=== PATIENT | female | born 1960 | race Caucasian/White ===

== ENCOUNTER → 2023-12-01 07:43 | Outpatient (REF) | payer OTHER, SELFPAY | LOC: MRI 3T 07:43 | PROVIDERS: ATTENDING PHYSICIAN Orthopaedic Surgery | DX: M84.374A Stress fracture, right foot, initial encounter for fracture (principal) | CPT/HCPCS: 73721 ==

== ENCOUNTER → 2024-01-25 07:47 | Outpatient (REF) | payer OTHER, SELFPAY | LOC: WDC 07:47 | PROVIDERS: ATTENDING PHYSICIAN Family Medicine | DX: Z12.31 Encounter for screening mammogram for malignant neoplasm of breast (principal) | CPT/HCPCS: 77063; 77067 ==

== ENCOUNTER 2024-02-22 10:19 | Emergency (ER) | payer OTHER, SELFPAY ==
[2024-02-22 10:28] VITALS: BP 149/93
[2024-02-22 11:52] LABS: % Basophils 0.8 % (0-2); % Eosinophils 2.3 % (0-6); % Immature Granulocytes 0.2 % (0-0.5); % Lymphocytes 19.8 % (20.5-51.1); % Monocytes 6.3 % (1.7-9.3); % Neutrophils 70.6 % (42.2-75.2); Absolute Basophils 0.1 10^3/uL (0-0.2); Absolute Eosinophils 0.2 10^3/uL (0-0.7); Absolute Lymphocytes 1.7 10^3/uL (1.2-3.4); Absolute Monocytes 0.5 10^3/uL (0.1-0.6); Absolute Neutrophils 5.9 10^3/uL (1.4-6.5); Hematocrit 38.7 % (37.0-47.0); Hemoglobin 13.1 g/dL (12.0-16.0); Mean Corp Hgb Conc. 33.9 g/dL (33.0-37.0); Mean Corpuscular Hgb 28.1 pg (27.0-31.0); Mean Platelet Volume 10.3 fL (7.4-10.4); Nucleated Red Blood Cells % 0 %; Platelet Count 255 10^3/uL (130-400); Red Blood Cell Count 4.66 10^6/uL (4.20-5.40); Red Cell Dist. Width 12.5 % (11.5-14.5); White Blood Cell Count 8.3 10^3/uL (4.8-10.8)
[2024-02-22 11:56] LABS: Urine Albumin Negative (Neg - Trace); Urine Bilirubin Negative (Negative); Urine Character Clear (Clear); Urine Color Yellow; Urine Glucose Negative (Negative); Urine Ketone Negative (Negative); Urine Leukocyte Negative (Negative); Urine Nitrite Negative (Negative); Urine Occult Blood Negative (Negative); Urine Specific Gravity 1.005 (<1.030); Urine Urobilinogen Negative (Neg - 1+)
--- NOTE | 2024-02-22 11:56 | ED.GENMED ---
History of Present Illness
General
Chief Complaint: Abdominal Pain
Source: patient
Exam Limitations: none
Time Seen by Provider: 02/22/24 11:21
Nursing documentation reviewed up to this point in time: agreed with
Travel History
Have you had any contact with someone who has COVID-19?: No
Do you have any symptoms of coronavirus? Fever > 100 degrees, chills, cough, shortness of breath, sore throat, loss of taste or smell, muscle aches, or headache?: No
History of Present Illness
History of Present Illness:
The patient is a pleasant 63-year-old female with a past medical history of hypertension who presents with left lower abdominal pain intermittently for 2 weeks. Patient reports that intensified last night. She reports she had a large bowel
movement this morning. She denies nausea and vomiting. She denies fever.
Past History
Past History
ED Past Medical History: HTN
ED Past Surgical History: None
Social History
Tobacco: Non-smoker
Alcohol: Other
Drug: None
Personal: Other
Living: with family
Employment: Employed
Family History
Family History: Other
Review of Systems
Review of Systems
Allergies reviewed?: Yes
All Other Systems: ROS reviewed and negative except as documented in HPI and ROS
Constitutional: Reports no symptoms
EENT: Reports no symptoms
Respiratory: Reports no symptoms
ABD/GI: Reports abdominal pain
: Reports flank pain
Musculoskeletal: Reports no symptoms
Skin: Reports no symptoms
Neurological: Reports no symptoms
Endocrine: Reports no symptoms
Hematologic/Lymphatic: Reports no symptoms
Psychiatric: Reports no symptoms
Phy Exam
Physical Exam
Physical Exam:
Physical Exam
General: no apparent distress, not acutely ill
Neck: supple. no meningeal signs. normal psoterior pharynx
Heart: s1/s2 regular rate and rhythm, no murmur. equal radial pulses.
Lungs: no acute respiratory distress. clear bilaterally
Abdomen: Soft. Left lower quadrant tenderness. No rebound or guarding. No pulsatile mass.
Neuro: alert and oriented. no focal neurological deficits
Skin: no rash
Psychiatric: well kept. interactive and cooperative
Extremities: no edema. no calf tenderness. negative homans. good distal pulses
Course
Orders/Labs/Results
Orders:
Orders
02/22/24 11:40
Complete Blood Count/With Diff Urgent
Comprehensive Metabolic Panel Urgent
Lipase Urgent
Urinalysis Reflex To Culture Urgent
Date Specimen was Collected: 02/22/24
Time Specimen was Collected: 11:39
02/22/24 11:55
Acetaminophen [Tylenol] 1,000 mg PO NOW STA
Ketorolac [Toradol] 30 mg IV NOW STA
02/22/24 11:56
CT Abd/pelvis W Iv Cont Urgent
Comment:
Reason For Exam: LLQ pain/L flank pain
02/22/24 14:54
Amoxicillin 875 mg/Clav 125 mg [Augmentin 875 mg/125 mg] 1 tablet PO NOW STA
Abnormal Lab Results
02/22/24
11:40
Lymphocytes % 19.8 L %
(20.5-51.1)
BUN 22 H mg/dl
(7-17)
02/22/24 11:40
02/22/24 11:40
Vital Signs
Initial and Last Documented VS:
Initial Vital Signs
Temp Pulse Resp BP Pulse Ox
98.3 F 77 16 149/93 98
02/22/24 10:28 02/22/24 10:28 02/22/24 10:28 02/22/24 10:28 02/22/24 10:28
Last Documented Vital Signs
Temp Pulse Resp BP Pulse Ox
98.3 F 65 18 140/87 98
02/22/24 10:28 02/22/24 13:01 02/22/24 13:01 02/22/24 13:01 02/22/24 13:01
MDM/Problems Addressed
Differential Diagnosis Includes:
Acute diverticulitis, renal colic, pyelonephritis
MDM/Problems Addressed:
Patient presents with subacute left lower quadrant and left flank pain
Chronic conditions affecting care: HTN
Acute Exacerbation and/or Progression of Chronic Illness:
Patient is acutely hypertensive, likely due to pain
*Radiology
Radiology exam reviewed: radiology read reviewed
*Pulse Oximetry
Patient hypoxic: no
*Critical Care Note
Total Time (30-74mins, 75-104mins- exclusive of procedures): Not Applicable
Update Note
Update Note:
Patient continues to look well and comfortable. CT shows sign of stool. Patient reports she had a large bowel movement yesterday but the pain did not get relieved. Patient still has mild left lower quadrant tenderness. Given patient has had this
ongoing intermittent tenderness for 2 weeks, decision made to treat for possible early diverticulitis.
ED Attending Note
-
Portions of this chart may have been created with voice recognition software.� Occasional wrong word or��sound alike� substitutions may have occurred due to the inherent limitations of voice recognition software.
Discharge Plan
Departure
Patient Disposition: Home (Routine Discharge)
Date of Disposition: 02/22/24
Time of Disposition: 14:55
Patient with high blood pressure during this ER visit?: Yes
Condition: Good
Covid-19: Not Applicable
Discharge Problem:
Left lower quadrant abdominal pain
Instructions: Abdominal Pain, BLOOD PRESSURE
Prescriptions:
New
amoxicillin-pot clavulanate 875-125 mg tablet
1 tab PO BID Qty: 14 0RF
Referrals:
Tarun Melara MD [Active] -
Fany Perkins DO [Family Provider] -
Activity Restrictions/Additional Instructions:
Take 600 mg of Advil every 6-8 hours for pain. Please call mgmt analyst on Saturday to set up an appointment. We are treating you with Augmentin for possible diverticulitis
Start a probiotic, which is sold [id number] at pharmacies, while you take the Augmentin
Interventions
Interventions:
*Risk Screen - Suicide Last Done: 02/22/24 10:28
*General Assessment Last Done: 02/22/24 10:28
*Neglect/Abuse Screening Last Done: 02/22/24 10:28
EU-[facility]moq[facility]-Nunxxuerti Assessment Last Done: 02/22/24 11:59
Discharge Date and Time
Print Language: DANISH
[2024-02-22] MEDS: TORADOL 30 MG IV (12:06)
[2024-02-22 12:07] LABS: ALT (SGPT) 17 U/L (0-35); AST (SGOT) 26 U/L (14-36); Albumin 4.4 g/dl (3.5-5.0); Alkaline Phosphatase 76 U/L (38-126); Blood Urea Nitrogen 22 mg/dl (7-17); Calcium 10.1 mg/dl (8.4-10.2); Carbon Dioxide 30 mmol/L (22-30); Chloride 106 mmol/L (98-107); Glucose 99 mg/dl (70-99); Potassium 4.4 mmol/L (3.5-5.1); Sodium 142 mmol/L (135-145); Total Bilirubin 0.5 mg/dl (0.2-1.3); eGFR > 60.00
[2024-02-22] MEDS: TYLENOL 1000 MG PO (12:07)
[2024-02-22 12:37] LABS: Lipase 182 U/L (23-300)
[2024-02-22 13:01] VITALS: BP 140/87
[2024-02-22] MEDS: AUGMENTIN 875 MG/125 MG 1 TABLET PO (15:02)
== END 2024-02-22 15:11 | disposition home or self-care (01) ==
LOC: EMR 10:19
PROVIDERS: EMERGENCY PHYSICIAN Emergency Medicine; FAMILY PHYSICIAN Family Medicine
DX: R10.32 Left lower quadrant pain (principal); I10 Essential (primary) hypertension
CPT/HCPCS: 99285; 96374; 74177; 80053; 81003; 83690; 85025; Q9967

== ENCOUNTER → 2025-01-26 15:31 | Outpatient (REF) | payer OTHER, SELFPAY | LOC: RAD 15:31 | PROVIDERS: ATTENDING PHYSICIAN Physician Assistant Surgical; FAMILY PHYSICIAN Family Medicine | DX: M25.531 Pain in right wrist (principal) | CPT/HCPCS: 73200 ==

== ENCOUNTER → 2025-01-30 07:41 | Outpatient (REF) | payer OTHER, SELFPAY | LOC: WDC 07:41 | PROVIDERS: ATTENDING PHYSICIAN Family Medicine | DX: Z12.31 Encounter for screening mammogram for malignant neoplasm of breast (principal) | CPT/HCPCS: 77063; 77067 ==

== ENCOUNTER → 2025-03-18 07:03 | Outpatient (REF) | payer OTHER, SELFPAY | LOC: PAVMRI 07:03 | PROVIDERS: ATTENDING PHYSICIAN Orthopaedic Surgery; FAMILY PHYSICIAN Family Medicine | DX: M25.531 Pain in right wrist (principal) | CPT/HCPCS: 73221 ==